=== PATIENT | female | born 1960 | race Two or more races ===

== ENCOUNTER 2022-06-09 04:45 | Day surgery (SDC) | payer OTHER ==
[~2022-06-09 04:45] MED LIST: ATORVASTATIN CA10 MG PO; BACLOFEN20 MG PO; CARAFATE1 GM PO; FIORICET
== END 2022-06-09 13:25 | disposition home or self-care (01) ==
LOC: CIR.AMB 04:45
PROVIDERS: ATTEND Obstetrics & Gynecology Gynecology
DX: N39.3 Stress incontinence (female) (male) (principal); N36.41 Hypermobility of urethra; Z20.822 Contact with and (suspected) exposure to COVID-19; Z20.828 Contact with and (suspected) exposure to other viral communicable diseases; Z88.6 Allergy status to analgesic agent
CPT/HCPCS: 57288; 57240; C1771